=== PATIENT | female | born 1960 | race Caucasian/White ===

== ENCOUNTER 2024-12-08 04:00 | Day surgery (SDC) | payer OTHER, MEDICARE ==
[2024-12-08] MEDS ORDERED: LIDOCAINE HCL 1%, 10 MG/ML (20ML VIAL) ONE (07:16)
[2024-12-08] MEDS ORDERED: PAPAVERINE HCL 30 MG/1 ML 10 ML VIAL NR ONE (07:16)
[2024-12-08] MEDS ORDERED: HEPARIN NA (PORCINE) 5,000 UNITS/ML 1ML VIAL ONE (07:16)
[2024-12-08] MEDS ORDERED: POVIDONE-IODINE OINTMENT 10% - 28.4 GM TUBE ONE (07:38)
[2024-12-08] MEDS ORDERED: PROPOFOL 20 ML ONE ×2 (07:56→07:59)
[2024-12-08] MEDS ORDERED: MIDAZOLAM HCL 2 MG/2 ML SINGLE DOSE VIAL ONE (07:56)
[2024-12-08] MEDS ORDERED: ceFAZolin SODIUM 1 GM VIAL ONE (08:12)
[2024-12-08] MEDS: LIDOCAINE HCL 1%, 10 MG/ML (20ML VIAL) INF ONE (08:31)
[2024-12-08] MEDS ORDERED: ONDANSETRON 4 MG/2 ML VIAL IVPUSH PRN (10:12)
[2024-12-08] MEDS ORDERED: oxyCODONE HCL 5 MG TABLET PO PRN (10:12)
[2024-12-08] MEDS ORDERED: SODIUM CHLORIDE 1,000 ML IV SCH (10:15)
[2024-12-08] MEDS: ACETAMINOPHEN 1000 MG/100 ML BAG IVPB PRN (10:19)
[2024-12-08 12:38] VITALS: RESP 18
[2024-12-08 13:33] VITALS: BP 135/59; PULSE 63; TEMP 98
== END 2024-12-08 13:30 | disposition home or self-care (01) ==
LOC: JASU-SURG 04:00
PROVIDERS: ATTEND Surgery
PROC: 03180ZD Bypass Left Brachial Artery to Upper Arm Vein, Open Approach (ICD-10-PCS; principal; 2024-12-08 08:00)
DX: I12.0 Hypertensive chronic kidney disease with stage 5 chronic kidney disease or end stage renal disease (principal); N18.6 End stage renal disease
CPT/HCPCS: 36415; 84132; 86850; 86900; 86901; 94760; J0131; J1644